=== PATIENT | male | born 1970 | race Caucasian/White ===

== ENCOUNTER → 2018-04-18 | Outpatient (CLI) | payer MEDICAID ==
[2018-04-18 11:55] LABS: Basophils % (A) 1 %; Eosinophils # (A) 0.4 k/uL (0-0.7); Eosinophils % (A) 5 %; HCT 43.1 % (39.0-53.0); HGB 14.6 gm/dL (13.0-17.5); Lymphocytes # (A) 1.9 k/uL (1.0-4.8); Lymphocytes % (A) 24 %; MCH 29.4 pg (25.0-35.0); MCHC 33.9 g/dL (31.0-37.0); MCV 86.9 fL (80.0-100.0); Mean Platelet Volume 6.5; Monocytes # (A) 0.6 k/uL (0-1.0); Monocytes % (A) 7 %; Neutrophils # (A) 4.9 k/uL (1.3-7.7); Neutrophils % (A) 61 %; Platelet Count 281 k/uL (150-450); RBC 4.97 m/uL (4.30-5.90); RDW 13.2 % (11.5-15.5); WBC 8.1 k/uL (3.8-10.6)
== END | disposition home or self-care (01) ==
LOC: LABWHC1 11:08
PROVIDERS: ATTEND Nurse Practitioner Primary Care
DX: Z00.00 Encounter for general adult medical examination without abnormal findings (principal)
CPT/HCPCS: 36415; 82306; 84443; 85025

== ENCOUNTER → 2018-04-20 | Outpatient (CLI) | payer MEDICAID ==
[2018-04-20 08:20] LABS: ALT 31 U/L (21-72); AST 33 U/L (17-59); Albumin 4.4 g/dL (3.5-5.0); Alkaline Phosphatase 91 U/L (38-126); Anion Gap 11 mmol/L; Blood Urea Nitrogen 16 mg/dL (9-20); Calcium 9.4 mg/dL (8.4-10.2); Carbon Dioxide 23 mmol/L (22-30); Chloride 107 mmol/L (98-107); Cholesterol 188 mg/dL (<200); Glucose 102 mg/dL (74-99); HDL Cholesterol 48 mg/dL (40-60); LDL Cholesterol,Calculated 98 mg/dL (0-99); Sodium 141 mmol/L (137-145); Total Bilirubin 0.7 mg/dL (0.2-1.3); Total Protein 7.2 g/dL (6.3-8.2); Triglycerides 211 mg/dL (<150)
== END | disposition home or self-care (01) ==
LOC: LABWHC1 07:16
PROVIDERS: ATTEND Nurse Practitioner Primary Care
DX: Z00.00 Encounter for general adult medical examination without abnormal findings (principal)
CPT/HCPCS: 36415; 80053; 80061

== ENCOUNTER → 2019-05-11 | Outpatient (CLI) | payer MEDICAID ==
[2019-05-11 06:56] LABS: Basophils # (A) 0.1 k/uL (0-0.2); Basophils % (A) 1 %; Eosinophils # (A) 0.3 k/uL (0-0.7); Eosinophils % (A) 4 %; HCT 44.5 % (39.0-53.0); HGB 14.6 gm/dL (13.0-17.5); Lymphocytes # (A) 2.2 k/uL (1.0-4.8); Lymphocytes % (A) 29 %; MCH 28.9 pg (25.0-35.0); MCHC 32.8 g/dL (31.0-37.0); Mean Platelet Volume 6.4; Monocytes # (A) 0.5 k/uL (0-1.0); Monocytes % (A) 7 %; Neutrophils # (A) 4.4 k/uL (1.3-7.7); Neutrophils % (A) 57 %; Platelet Count 321 k/uL (150-450); RBC 5.05 m/uL (4.30-5.90); RDW 13.2 % (11.5-15.5); WBC 7.6 k/uL (3.8-10.6)
[2019-05-11 11:36] LABS: African American GFR (CKD) 101.3 (60.0-200.0); Albumin 4.7 g/dL (3.80-4.90); Albumin/Globulin Ratio 2.04 (1.60-3.17); Anion Gap 8.6 mmol/L (4.00-12.00); Calcium 9.8 mg/dL (8.7-10.3); Carbon Dioxide 28.4 mmol/L (21.6-31.8); Globulin 2.3 g/dL (1.6-3.3); LDL Cholesterol,Calculated 100.6 mg/dL (0.0-131.0); Potassium 4.3 mmol/L (3.5-5.5); Total Bilirubin 0.7 mg/dL (0.3-1.2); VLDL Calculation 34.4 mg/dL (5.00-40.00)
[2019-05-11 11:45] LABS: T4, Free (Free Thyroxine) 1.2 ng/dL (0.80-1.80)
== END | disposition home or self-care (01) ==
LOC: LABWHC1 06:35
PROVIDERS: ATTEND Family Medicine
DX: Z00.00 Encounter for general adult medical examination without abnormal findings (principal); E78.5 Hyperlipidemia, unspecified; I10 Essential (primary) hypertension; L40.9 Psoriasis, unspecified
CPT/HCPCS: 36415; 80053; 80061; 84153; 84439; 84443; 85025

== ENCOUNTER → 2019-05-11 | Outpatient (CLI) | payer MEDICAID ==
--- NOTE | 2019-05-11 08:35 | XR ---
EXAMINATION TYPE: XR cervical spine comp DATE OF EXAM: 05/11/2019 TECHNIQUE: Frontal, lateral, oblique, swimmers, and open mouth view of the cervical spine are obtaine d. HISTORY: M54.2 Neck pain COMPARISON: None FINDINGS: The cervical spine is visualized in its entirety from C1 thru the top of T1 level, it is s atisfactory in alignment without evidence of acute fracture or dislocation. The pre-vertebral soft t issue appears within normal limits. There is straightening of usual cervical lordosis and moderate mu ltilevel degenerative disc disease with anterior osteophytes, intervertebral disc space narrowing, en dplate sclerosis, and uncovertebral hypertrophy as well as facet arthropathy. There is slight irregul arity of the superior endplate of T4 although this does not appear as a compression deformity on the oblique or frontal view. This is likely on the basis of degenerative disc disease. The C1-C2 articula tion is within normal limits on the open mouth view. The oblique images demonstrate mild neural fora madi narrowing on the right at C3-C4, C4-C5, and C5-C6 and on the left at C4-C5 and C6-C7. IMPRESSION: No acute fracture or malalignment is seen in the cervical spine. Moderate multilevel deg enerative disc disease of the cervical spine.
== END | disposition home or self-care (01) ==
LOC: RADXRMAIN 05:53
PROVIDERS: ATTEND Family Medicine
DX: M50.30 Other cervical disc degeneration, unspecified cervical region (principal)
CPT/HCPCS: 72050

== ENCOUNTER 2020-04-26 07:42 | Day surgery (SDC) | payer MEDICAID ==
[2020-04-24 16:10] VITALS: BMI 42.5
[~2020-04-26 07:42] MED LIST: LACTATED RINGERS 1,000 ML IV SCH
[2020-04-26 08:39] VITALS: TEMP 97
[2020-04-26] MEDS ORDERED: PROPOFOL 10 MG/ML 20 ML VIAL IV ONE (08:40)
[2020-04-26] MEDS ORDERED: LIDOCAINE 1% INJ 10MG/ML (20 ML MDV) ONE (08:40)
--- NOTE | 2020-04-26 08:54 | P.PCN ---
Date of Procedure: 04/26/20 Procedure(s) Performed: BRIEF HISTORY: Patient is a 49-year-old pleasant male scheduled for an elective colonoscopy as a part of screening for colorectal neoplasia. PROCEDURE PERFORMED: Colonoscopy. PREOPERATIVE DIAGNOSIS: Screening for colon cancer. IV sedation per Anesthesia. PROCEDURE: After informed consent was obtained, the patient, was brought into the endoscopy unit. IV sedation was administered by Anesthesia under continuous monitoring. Digital rectal examination was normal. Initially the Olympus CF-160 flexible video colonoscope was then inserted in the rectum, gradually advanced into the cecum without any difficulty. Careful examination was performed as the scope was gradually being withdrawn. Ileocecal valve and the appendiceal orifice were visualized and appeared normal. Prep was excellent. Mucosa of the cecum, ascending colon, transverse colon, descending colon, sigmoid colon, and rectum appeared normal. Retroflexion was performed in the rectum and no lesions were seen. The patient tolerated the procedure well. IMPRESSION: Normal-appearing colon from rectum to cecum with no evidence of colorectal neoplasia. RECOMMENDATIONS: Findings of this examination were discussed with the patient as well as his family. He was advised to have a repeat screening colonoscopy in 10 years.
[2020-04-26 09:02] VITALS: RESP 16
[2020-04-26 09:20] VITALS: BP 154/89; PULSE 58
== END 2020-04-26 09:34 | disposition home or self-care (01) ==
LOC: ORWHC2ENDO 07:42
PROVIDERS: ATTEND Internal Medicine Gastroenterology
DX: Z12.11 Encounter for screening for malignant neoplasm of colon (principal); I10 Essential (primary) hypertension; E78.5 Hyperlipidemia, unspecified; G47.33 Obstructive sleep apnea (adult) (pediatric); E66.01 Morbid (severe) obesity due to excess calories; Z68.41 Body mass index [BMI] 40.0-44.9, adult; Z79.899 Other long term (current) drug therapy; Z96.651 Presence of right artificial knee joint; Z85.820 Personal history of malignant melanoma of skin; Z98.890 Other specified postprocedural states
CPT/HCPCS: J2001; J2704; G0121

== ENCOUNTER → 2021-06-28 | Outpatient (CLI) | payer MEDICAID ==
--- NOTE | 2021-06-28 12:08 | CONS ---
CONSULTATION DATE OF SERVICE: 06/28/2021 This 50-year-old gentleman has been evaluated in Sleep Center for obstructive sleep apnea-hypopnea syndrome. HISTORY OF PRESENT ILLNESS/SLEEP-WAKE EVALUATION: The patient was been diagnosed with obstructive sleep apnea 15 years ago. Since that time, he has been on treatment with CPAP. His CPAP unit is old. His weight has increased since that time. He does not have information about his previous sleep study. Even while he is using the machine, the patient snores and may have episodes of changes of breathing during sleep. His sleep schedule is from 11 p.m. to 6 a.m. on weekdays and from 12 midnight until 7 or 8 a.m. on weekends. Sometimes he has problems with falling asleep, although no TV in bedroom. Usually he sleeps on the back position. No history of hypnagogic hallucinations, sleep paralysis or cataplexy. In the morning the patient wakes up tired with difficulties paying attention, falling asleep during the day. [place] Sleepiness Scale is 6. PAST MEDICAL HISTORY: Positive for hypertension, supraventricular tachycardia, hyperlipidemia. PAST SURGICAL HISTORY: Cardiac ablation for SVT, melanoma removed from right cheek, right full knee replacement, right tibia reconstruction in 2009. MEDICATIONS: 1. Metoprolol 50 mg once a day. 2. Rosuvastatin 20 mg once a day. 3. 30 mg twice a day. SOCIAL HISTORY: Negative for smoking or using alcohol. FAMILY HISTORY: Hypertension. REVIEW OF SYSTEMS: No fevers. No double vision. No recent chest pain. No shortness of breath. No abdominal pain. No bleeding episodes. No blood in the urine. No seizure episodes. Awakenings from sleep, sleepiness during the day. PHYSICAL EXAMINATION: GENERAL: Pleasant gentleman without distress. VITAL SIGNS: BP 166/83, HR 61, RR 15, height 5 feet 11 inches, weight 316.4, temperature 96.4, oxygen saturation at room air 96%. BMI 44.0. HEENT: PERRLA, EOMI, evaluation of oropharynx showed tongue protrudes midline. Wide pillars. Short distance between soft palate and posterior pharyngeal wall. NECK: Supple, no JVD. Thyroid is not palpable. Neck is wide, 20-1/2 inches in circumference. LUNGS: Clear to percussion and to auscultation. Good air exchange. No wheezing or rhonchi. HEART: S1, S2 regular. No murmurs, gallops, or rubs. ABDOMEN: Obese. EXTREMITIES: No clubbing or cyanosis. DIESEL MAINTENANCE TECHNICIAN: Awake, alert, and oriented X3. Cranial nerves 2 to 7 intact. There is no fasciculation or atrophy. noted. No focal deficits observed. IMPRESSION: 1. Snoring, wide neck, history of obstructive sleep apnea for 15 years. No information about previous sleep studies. Obstructive sleep apnea-hypopnea syndrome. 2. Obesity; body mass index 44. The patient's weight significantly increased since his sleep studies 15 years ago. 3. Hypertension. 4. History of supraventricular tachycardia, status post cardiac ablation. 5. Hyperlipidemia. 6. 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 7. Status post right knee replacement in 2014. 8. Status post tibia reconstruction on the right side in 2009. PLAN: 1. Polysomnography for evaluation of patient's breathing during sleep. 2. CPAP/BiPAP titration if sleep study confirms obstructive sleep apnea-hypopnea syndrome. 3. Preferable position during sleep on the side. 4. No driving if patient feels any sleepiness. 5. I will see patient for follow up visit to explain results of testing and following plan. Thank you very much for referring this patient for consultation. Sincerely, Clovis Anderson MD, PhD, FAASM Diplomat of [employer] Sleep Medicine Board of [employer] Software Validation Technician of [facility] [place] MMODL / RAJ: [id number] /
== END ==
LOC: SLEEP 10:05
PROVIDERS: ATTEND Internal Medicine
DX: G47.33 Obstructive sleep apnea (adult) (pediatric) (principal); E66.9 Obesity, unspecified; I10 Essential (primary) hypertension; E78.5 Hyperlipidemia, unspecified; Z68.41 Body mass index [BMI] 40.0-44.9, adult; Z86.79 Personal history of other diseases of the circulatory system; Z96.651 Presence of right artificial knee joint; Z98.890 Other specified postprocedural states; Z79.899 Other long term (current) drug therapy; Z87.891 Personal history of nicotine dependence
CPT/HCPCS: 99211

== ENCOUNTER → 2022-01-30 | Outpatient (CLI) | payer MEDICAID ==
--- NOTE | 2022-01-30 12:47 | SFUN ---
SLEEP CENTER FOLLOW UP NOTE DATE OF SERVICE: 01/30/2022 This 51-year-old gentleman has been followed for treatment of obstructive sleep apnea- hypopnea syndrome. Recently the patient received a new CPAP unit, and he is able to use it every night without significant problems. I checked his CPAP unit. Range of the pressure is from 10 to 15 cm of water, average pressure 12 cm of water. Usage is 100% of nights and 90% of nights for more than 4 hours, average 5 hours 6 minutes, indicating good compliance. Apnea-hypopnea index reading is only 0.2, which is absolutely perfect. Leak is in acceptable range at 15.1 L/minute. [place] Sleepiness Scale is 2, which is normal. MEDICATIONS: 1. Metoprolol 50 mg once a day. 2. Rosuvastatin 20 mg once a day. PHYSICAL EXAMINATION: GENERAL: Pleasant patient in no distress. VITAL SIGNS: BP 168/83. Patient did not take his medication in the morning today. HR 74, RR 16, weight 294.2, temperature 97.4, oxygen saturation at room air 97%. [place] Sleepiness Scale today is 2, which is perfect. HEENT: PERRLA, EOMI, evaluation of oropharynx showed tongue protrudes midline. NECK: Supple, no JVD. Thyroid is not palpable. Neck is wide; 20-1/2 inches in circumference. LUNGS: Clear to percussion and to auscultation. Good air exchange. No wheezing or rhonchi. HEART: S1, S2 regular. No murmurs, gallops, or rubs. ABDOMEN: Obese. EXTREMITIES: No clubbing or cyanosis. HISTOTECHNICIAN: Awake, alert, and oriented X3. Cranial nerves 2 to 7 intact. There is no fasciculation or atrophy. noted. No focal deficits observed. IMPRESSION: 1. Obstructive sleep apnea-hypopnea syndrome. The patient demonstrated great compliance with treatment, benefitting from treatment. Normal respiration on CPAP. 2. Obesity. 3. Hypertension. 4. History of supraventricular tachycardia, status post cardiac ablation. 5. Hyperlipidemia. 6. 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 7. Status post right knee replacement in 2014. 8. Status post tibia reconstruction on the right side in 2009. PLAN: 1. Patient will continue to use PAP equipment every night for the whole night. 2. Sleep hygiene with regular time in bed for at least 7-1/2 to 8 hours. 3. Precautions related to driving. No driving if feeling sleepiness. 4. I will maintain all necessary prescription for PAP supplies including mask, tube, filters. 5. Watching weight. 6. Follow-up visit in 6 months or earlier if patient has any problems. Thank you very much for allowing me to participate in the management of your patient. Sincerely, Clovis Anderson MD, PhD, FAASM Diplomat of [employer] Sleep Medicine Board of [employer] Research Intern of [facility] [place] MMODL / IJN: [id number] /
== END ==
LOC: SLEEP 10:16
PROVIDERS: ATTEND Internal Medicine
DX: G47.33 Obstructive sleep apnea (adult) (pediatric) (principal); Z99.89 Dependence on other enabling machines and devices; E66.9 Obesity, unspecified; I10 Essential (primary) hypertension; E78.5 Hyperlipidemia, unspecified; Z98.890 Other specified postprocedural states; Z96.651 Presence of right artificial knee joint; Z86.79 Personal history of other diseases of the circulatory system; Z87.891 Personal history of nicotine dependence

== ENCOUNTER → 2022-08-28 | Outpatient (CLI) | payer MEDICAID ==
--- NOTE | 2022-08-28 10:44 | P.PN ---
Subjective DATE: 08/28/2022 FOLLOW UP VISIT. Patient with obstructive sleep apnea hypopnea syndrome return to sleep center for follow-up visit. Information from previous visit have been reviewed. Patient is using PAP equipment every night for the whole night, getting PAP supplies in time. The patient does not have significant problems with the mask, PAP unit and humidification. [place] sleepiness scale is 5, which is normal. I checked information from PAP unit. PAP unit pressure 10-15, average 12.1 cm H2O. Usage is 83 % for more then 4 hours, average 5.25 hours per night. Leak is 14.8 l/m, which is in acceptable range. Apnea Hypopnea Index is 0.3, which is perfect. MEDICATIONS:1. Lisinopril 2. Metoprolol 3. Rosuvastatin 4. Otezla During physical exam: GENERAL: A pleasant patient without any distress. VITAL SIGNS: BP 149/83, HR 70, RR 16, weight to 95, body mass index 41.1, temperature 97.8, oxygen saturation at room air 96 % . HEENT: PERRLA, EOMI.low position of soft palate . NECK: Supple. No JVD. LUNGS: Clear to percussion and to auscultation. Good air exchange. No wheezing or rhonchi. HEART: S1, S2 regular. ABDOMEN: Soft and nontender. Slightly obese EXTREMITIES: No clubbing or cyanosis. FRUIT HARVEST MACHINE OPERATOR: Awake, alert, and oriented x3. No focal deficit. Impressions: 1. Obstructive sleep apnea-hypopnea syndrome. Patient demonstrated great compliance with treatment, benefiting from treatment. 2. Obesity. 3. Hypertension. 4. History of supraventricular tachycardia, status post cardiac ablation. 5. Hyperlipidemia. 6. 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 7. Status post right knee replacement in 2014. 8. Status post TB reconstruction on the right side in 2009. Plan: 1. Continue using PAP equipment every night for the whole night. 2. To change air filter at least 1-2 times per month. 3. PAP unit should stay lower then position of the head. 4. Advised patient to remove all remaining water from humidifier canister daily and make it dry after each usage. Refill canister with fresh distilled water before each usage. 5. Sleep hygiene with regular time in bed for at least 8 hours. 6. Precautions related to driving. No driving if feel any sleepiness. 7. I will maintain prescription for PAP supplies including mask, tube, filters. 8. Follow up visit in 6 months or earlier if patient has any problems. 9. Watching and losing weight. Thank you very much for allowing me to participate in the management of your patient. Clovis Anderson MD, PhD, FAASM. Diplomat of [employer], Sleep Medicine Board by [employer] Spear Fisher of [facility] [place]
== END | disposition home or self-care (01) ==
LOC: SLEEP 09:48
PROVIDERS: ATTEND Internal Medicine
DX: G47.33 Obstructive sleep apnea (adult) (pediatric) (principal); E66.9 Obesity, unspecified; I10 Essential (primary) hypertension; E78.5 Hyperlipidemia, unspecified; Z86.79 Personal history of other diseases of the circulatory system; Z98.890 Other specified postprocedural states

== ENCOUNTER → 2023-01-13 | Outpatient (CLI) | payer MEDICAID ==
[2023-01-13 16:47] LABS: Basophils # (A) 0.09 X 10*3/uL (0.00-0.10); Basophils % (A) 1.1 %; Eosinophils # (A) 0.35 X 10*3/uL (0.04-0.35); Eosinophils % (A) 4.3 %; HGB 14.5 g/dL (13.0-17.0); Immature Grans, Automated 0.7 %; Lymphocytes # (A) 2.27 X 10*3/uL (0.90-5.00); Lymphocytes % (A) 27.6 %; MCH 29.4 pg (27.0-32.0); MCHC 32.2 g/dL (32.0-37.0); MCV 91.1 fL (80.0-97.0); Mean Platelet Volume 9.9 fL (9.5-12.2); Monocytes # (A) 0.69 X 10*3/uL (0.20-1.00); Monocytes % (A) 8.4 %; NRBC Per 100 WBC 0 /100 WBCS (0.0-0.0); Neutrophils # (A) 4.75 X 10*3/uL (1.80-7.70); Neutrophils % (A) 57.9 %; Platelet Count 295 X 10*3/uL (140-440); RBC 4.94 X 10*6/uL (4.40-5.60); RDW 12.6 % (11.5-14.5); WBC 8.21 X 10*3/uL (4.50-10.00)
[2023-01-13 16:49] LABS: African American GFR (CKD) 111.8 (60.0-200.0); BUN/Creat Ratio 13.33 Ratio (12.00-20.00); Calcium 9.3 mg/dL (8.7-10.3); Non-African American GFR(CKD) 96.5 (60.0-200.0)
== END | disposition home or self-care (01) ==
LOC: LABWHC1 09:55
PROVIDERS: ATTEND Family Medicine
DX: I10 Essential (primary) hypertension (principal); G47.33 Obstructive sleep apnea (adult) (pediatric); Z99.89 Dependence on other enabling machines and devices; K21.9 Gastro-esophageal reflux disease without esophagitis; E78.2 Mixed hyperlipidemia; R39.9 Unspecified symptoms and signs involving the genitourinary system
CPT/HCPCS: 36415; 80048; 85025

== ENCOUNTER → 2023-01-16 | Outpatient (CLI) | payer MEDICAID ==
--- NOTE | 2023-01-16 08:17 | CT ---
EXAMINATION TYPE: CT abdomen pelvis wo con DATE OF EXAM: 01/16/2023 COMPARISON: none HISTORY: LEFT FLANK PAIN CT DLP: 2543.7 mGycm Examination of the solid and hollow viscera is limited given the lack of contrast. FINDINGS: LUNG BASES: No evidence for nodule. No evidence for infiltrate. LIVER/GB: Layering gallbladder sludge is suggested. No space-occupying hepatic lesion. PANCREAS: No pancreatic mass identified. No inflammatory process seen. SPLEEN: No evidence for splenomegaly. No intrasplenic lesions seen. ADRENALS: No adrenal nodules identified. No evidence for thickening. KIDNEYS: Mild left-sided hydroureteronephrosis secondary to a 3 mm calculus which appears to have pas sed into the urinary bladder. There is mild left renal edema and perinephric stranding. No additional calculi are seen. No mass. BOWEL: Appendix has a normal appearance. No evidence of bowel obstruction. No inflammatory process. Lymph nodes: No evidence for adenopathy greater than 1 cm. Abdominal aorta: Atheromatous changes seen. No evidence for aneurysm. Genital organs: No significant abnormality. Other: Vacuum disc L5-S1. IMPRESSION: 1. Recently passed calculus is noted within the urinary bladder measuring 3 mm with residual changes of the left renal collecting system as outlined above.
== END | disposition home or self-care (01) ==
LOC: RADCTMAIN 07:41
PROVIDERS: ATTEND Family Medicine
DX: N21.0 Calculus in bladder (principal)
CPT/HCPCS: 74176

== ENCOUNTER → 2023-02-26 | Outpatient (CLI) | payer MEDICAID ==
--- NOTE | 2023-02-26 11:40 | P.PN ---
Subjective DATE: 02/26/2023 FOLLOW UP VISIT. Patient with obstructive sleep apnea hypopnea syndrome return to sleep center for follow-up visit. Information from previous visit have been reviewed. Patient is using PAP equipment every night for the whole night, getting PAP supplies in time. The patient does not have significant problems with the mask, PAP unit and humidification. [place] sleepiness scale is 3, which is normal. I checked information from PAP unit. PAP unit pressure 10-15, average 12.5 cm H2O. Usage is 97% and 60 % for more then 4 hours, average 4.5 hours per night. Leak is to 12.4 l/m, which is in acceptable range. Apnea Hypopnea Index is 0.3, which is normal. MEDICATIONS:1. Metoprolol 50 mg once a day 2. /30 mg twice a day 3. Lisinopril 5 mg once a day 4. Rosuvastatin 20 mg once a day During physical exam: GENERAL: A pleasant patient without any distress. VITAL SIGNS: BP 148/87, HR 78, RR 16 , weight 300, temperature 98.7, oxygen saturation at room air 98 % . HEENT: PERRLA, EOMI.low position of soft palate, Mallapati 3 . NECK: Supple. No JVD. LUNGS: Clear to percussion and to auscultation. Good air exchange. No wheezing or rhonchi. HEART: S1, S2 regular. ABDOMEN: Soft and nontender. Obese EXTREMITIES: No clubbing or cyanosis. SUTURE WINDER HAND: Awake, alert, and oriented x3. No focal deficit. Impressions: 1. Obstructive sleep apnea-hypopnea syndrome. Patient demonstrated good compliance with treatment, benefiting from treatment. 2. Hypertension. 3. History of SVT, status post cardiac ablation. No recent episodes of arrhythmia. 4. Obesity. 5. Hyperlipidemia. 6. Status post melanoma removed from right cheek in 2017. 7. Status post right knee replacement. Plan: 1. Continue using PAP equipment every night for the whole night. 2. To change air filter at least 1-2 times per month. 3. PAP unit should stay lower then position of the head. 4. Advised patient to remove all remaining water from humidifier canister daily and make it dry after each usage. Refill canister with fresh distilled water before each usage. 5. Sleep hygiene with regular time in bed for at least 8 hours. 6. Precautions related to driving. No driving if feel any sleepiness. 7. I will maintain prescription for PAP supplies including mask, tube, filters. 8. Watching and losing weight. 9. Follow up visit in 6 months or earlier if patient has any problems. Thank you very much for allowing me to participate in the management of your patient. Clovis Anderson MD, PhD, FAASM. Diplomat of [place] [employer], Sleep Medicine Board by [place] [employer] Concession Manager of [facility] [place]
== END ==
LOC: SLEEP 10:55
PROVIDERS: ATTEND Internal Medicine
DX: G47.33 Obstructive sleep apnea (adult) (pediatric) (principal); I10 Essential (primary) hypertension; E66.9 Obesity, unspecified; E78.5 Hyperlipidemia, unspecified; Z96.651 Presence of right artificial knee joint; Z85.820 Personal history of malignant melanoma of skin; Z86.79 Personal history of other diseases of the circulatory system; Z99.89 Dependence on other enabling machines and devices; Z79.899 Other long term (current) drug therapy; Z87.891 Personal history of nicotine dependence
CPT/HCPCS: 99212

== ENCOUNTER → 2023-09-03 | Outpatient (CLI) | payer MEDICAID ==
--- NOTE | 2023-09-03 17:18 | P.PN ---
Subjective DATE: 09/03/2023 FOLLOW UP VISIT. Patient with obstructive sleep apnea hypopnea syndrome return to sleep center for follow-up visit. Information from previous visit have been reviewed. Patient is using PAP equipment every night for the whole night, getting PAP supplies in time. The patient does not have significant problems with the mask, PAP unit and humidification. [place] sleepiness scale is 3. I checked information from PAP unit. PAP unit pressure 10-15, average 12.0 cm H2O. Usage is 53 % for more then 4 hours, average 4.75 hours per night. Leak is 11.6 l/m, which is in acceptable range. Apnea Hypopnea Index is 0.3, which is normal. MEDICATIONS:1. Lisinopril 5 mg once a day 2. , Rosuvastatin 20 mg once a day 3. Metoprolol 50 mg once a day 4. Otezla 5. Topiramate During physical exam: GENERAL: A pleasant patient without any distress. VITAL SIGNS: BP 111/75, HR 92, RR 14 , weight 293.4, temperature 98.6, oxygen saturation at room air 96 % . HEENT: PERRLA, EOMI.low position of soft palate, Mallapati 3 . NECK: Supple. No JVD. LUNGS: Clear to percussion and to auscultation. Good air exchange. No wheezing or rhonchi. HEART: S1, S2 regular. ABDOMEN: Soft and nontender. Slightly obese EXTREMITIES: No clubbing or cyanosis. EMAIL MARKETER: Awake, alert, and oriented x3. No focal deficit. Impressions: 1. Obstructive sleep apnea-hypopnea syndrome. Patient demonstrated slightly low compliance with treatment, benefiting from treatment. I discussed with patient necessity to use CPAP equipment every night for the whole night. 2. History of SVT, status post cardiac ablation. No recent episodes of arrhythmia. 3. Obesity. 4. Hypertension. 5. Hyperlipidemia. 6. Status post right knee replacement. 7. Status post melanoma removed from the right cheek in 2017. Plan: 1. Continue using PAP equipment every night for the whole night. 2. To change air filter at least 1-2 times per month. 3. PAP unit should stay lower then position of the head. 4. Advised patient to remove all remaining water from humidifier canister daily and make it dry after each usage. Refill canister with fresh distilled water before each usage. 5. Sleep hygiene with regular time in bed for at least 8 hours. 6. Precautions related to driving. No driving if feel any sleepiness. 7. I will maintain prescription for PAP supplies including mask, tube, filters. 8. Follow up visit in 6 months or earlier if patient has any problems. 9. Watching and losing weight. Thank you very much for allowing me to participate in the management of your patient. Clovis Anderson MD, PhD, FAASM. Diplomat of [place] [employer], Sleep Medicine Board by [place] Special Education Para Professional of [facility] [place]
== END ==
LOC: 3 N SLEEP 16:47
PROVIDERS: ATTEND Internal Medicine
DX: G47.33 Obstructive sleep apnea (adult) (pediatric) (principal); E66.9 Obesity, unspecified; E78.5 Hyperlipidemia, unspecified; I10 Essential (primary) hypertension; Z99.89 Dependence on other enabling machines and devices; Z96.651 Presence of right artificial knee joint; Z79.899 Other long term (current) drug therapy; Z85.820 Personal history of malignant melanoma of skin; Z86.79 Personal history of other diseases of the circulatory system; Z98.890 Other specified postprocedural states; Z87.891 Personal history of nicotine dependence
CPT/HCPCS: 99212

== ENCOUNTER → 2025-02-05 | Outpatient (CLI) | payer MEDICAID ==
[2025-02-05 13:34] LABS: Basophils # (A) 0.09 X 10*3/uL (0.00-0.10); Basophils % (A) 1.1 %; Eosinophils # (A) 0.55 X 10*3/uL (0.04-0.35); Eosinophils % (A) 6.8 %; HCT 43.7 % (39.6-50.0); HGB 14.7 g/dL (13.0-17.0); Lymphocytes # (A) 2.12 X 10*3/uL (0.90-5.00); Lymphocytes % (A) 26.4 %; MCH 30.1 pg (27.0-32.0); MCHC 33.6 g/dL (32.0-37.0); MCV 89.5 FL (80.0-97.0); Mean Platelet Volume 9.2 FL (9.5-12.2); Monocytes # (A) 0.74 X 10*3/uL (0.20-1.00); Monocytes % (A) 9.2 %; NRBC Per 100 WBC 0 X 10*3/uL (0.00-0.01); Neutrophils # (A) 4.48 X 10*3/uL (1.80-7.70); Neutrophils % (A) 55.9 %; Platelet Count 273 X 10*3/uL (140-440); RBC 4.88 X 10*6/uL (4.40-5.60); RDW 12.6 % (11.5-14.5); WBC 8.03 X 10*3/uL (4.50-10.00)
[2025-02-05 14:01] LABS: ALT 13 U/L (10-49); AST 21 U/L (14-35); Albumin 4.2 g/dL (3.8-4.9); Albumin/Globulin Ratio 1.75 Ratio (1.60-3.17); Alkaline Phosphatase 79 U/L (41-126); BUN/Creat Ratio 17.71 Ratio (12.00-20.00); Blood Urea Nitrogen 12.4 mg/dL (9.0-27.0); Calcium 9.2 mg/dL (8.7-10.3); Carbon Dioxide 23.1 mmol/L (21.6-31.8); Chloride 101 mmol/L (96-109); Chol/HDL Ratio 3.57 Ratio; Globulin 2.4 g/dL (1.6-3.3); Glucose 109 mg/dL (70-110); LDL Cholesterol,Calculated 104.3 mg/dL (0.0-131.0); Potassium 3.5 mmol/L (3.5-5.5); Prostate Specific Antigen 1.42 ng/mL (0.000-3.500); Sodium 138 mmol/L (135-145); Total Bilirubin 0.5 mg/dL (0.3-1.2); Total Protein 6.6 g/dL (6.2-8.2)
== END | disposition home or self-care (01) ==
LOC: LABWHC1 09:06
PROVIDERS: ATTEND Family Medicine
DX: Z12.5 Encounter for screening for malignant neoplasm of prostate (principal); E66.01 Morbid (severe) obesity due to excess calories; E78.2 Mixed hyperlipidemia; I10 Essential (primary) hypertension
CPT/HCPCS: 36415; 80053; 80061; 84153; 84443; 85025